=== PATIENT | male | born 1990 | race Two or more races ===

== ENCOUNTER 2025-01-04 12:45 | Emergency (ER) | payer SELFPAY ==
[2025-01-04 12:55] VITALS: BMI 24.0
--- NOTE | 2025-01-04 12:55 | EKG_ITS ---
[facility] Test Date: 2025-01-04 Pat Name: CASSIDY WAGNER Department: Room: - Gender: Male Dispatch Supervisor: : 1990 Requested By: Luis Manuel Alvarez Order Number: [id number] Reading MD: Luis Manuel Alvarez Measurements Intervals Dwarf Rate: 113 P: 43 CT: 162 QRS: 49 QRSD: 112 T: 55 QT: 372 QTc: 511 Interpretive Statements SINUS TACHYCARDIA MODERATE INTRAVENTRICULAR CONDUCTION DELAY [110+ ms QRS DURATION] NONSPECIFIC T-WAVE ABNORMALITY ABNORMAL RHYTHM ECG No previous ECG available for comparison /store/S0/[id number]/ecg/[id number].pdf
--- NOTE | 2025-01-04 12:57 | EDNOTE_ITS ---
ED Medical Clearance RME/HPI General Chief complaint: Medical Clearance Stated complaint: MEDICAL CLEARANCE Time Seen by Provider: 01/04/25 12:50 Arrival date/time: 01/04/25 12:45 34-year-old male patient with significant history of methamphetamine abuse, came in for evaluation regarding medical clearance. Tesfaye emanuel patient was incarcerated today and was noted to have elevated blood pressure above 180 systolic and a heart rate of 133. Currently patient is denying any chest pain. Patient complaining of left thumb nail injury, sustained 2 weeks ago while fixing his car. The nail Came off. Denies any difficulty moving the nail. No deformity noted tetanus vaccination is unknown. Patient admits of using meth last night. Related Information Previous Rx's ?Medication ?Instructions ?Recorded ibuprofen 600 mg tablet 1 tab PO Q8HR PRN pain #30 t abs 12/12/16 acetaminophen 500 mg tablet 1,000 mg (2 x 500 mg) PO Q ID PRN 02/26/18 fever #20 tabs albuterol sulfate 90 mcg/actuation 2 puff inhalation Q ID PRN 02/26/18 aerosol inhaler shortness of breath or wheez ing #18 grams azithromycin 250 mg tablet See Rx Instructions PO .COM PLEX #6 02/26/18 tabs guaifenesin 100 mg/5 mL oral liquid 100 mg (5 mL) PO Q 4H PRN cold 02/26/18 symptoms #118 mL Allergies Allergy/AdvReac Type Severity Reaction Status Date / Time No Known Allergies Allergy Verified 02/26/18 01:07 Review of Systems Review of Systems Narrative Review of Systems: Review of system reviewed and within normal limits except mentioned in HPI ED Exam Narrative Physical exam: VITAL SIGNS: Reviewed. GENERAL APPEARANCE: Alert and interactive, follows commands, no acute distress, HEAD AND FACE: Non-traumatic. ENT: PERRL, pink conjunctivitis, eyelid no trauma, Mucous membrane moist. NECK: Supple, nontender, no nuchal rigidity. CHEST: No tenderness, no crepitus, no paradoxical movement, no retractions. LUNGS: Clear, well ventilated, symmetric, no rales, no wheezing, no ronchi, no stridor, good breath sounds bilaterally. HEART: Tachycardic, no murmur, no gallops. ABDOMEN: Soft, positive bowel sounds, nondistended, no guarding, nontender, no rebound, no masses, RECTAL: Deferred. GENITAL: Deferred. NEUROLOGICAL: Gross motor function intact sensory function intact, Appropriate for age. MUSCULOSKELETAL: low back nontender, full range of motion. EXTREMITIES: Left thumb nail totally gone, dry, new nail is growing ,nontender, full range of motion. No deformity SKIN: Color pink, dry, no rash, no lacerations, no abrasions, no contusions. LYMPHATICS: Deferred. Course Quality Measures none Orders Category Date Time Status EKG (ED ONLY) *Do not use* NOW Care 01/04/25 12:56 Completed Insert IV NOW Care 01/04/25 13:02 Active EKG (ED Only) Stat Exams 01/04/25 12:55 Draft LORazepam [Ativan Inj] Med 01/04/25 14:57 Discontinued 1 mg IVP X1 ONE LORazepam [Ativan] Med 01/04/25 12:55 Discontinued 0.5 mg PO X1 ONE NIFEdipine [Procardia] Med 01/04/25 14:09 Discontinued 10 mg PO X1 ONE Ringers Lactated 1000 ml [Lactated Ringers] 1,000 ml Med 01/04/25 12:57 Discontinued IV 999 mls/hr TET,DIP/PERT AC (Adult)-Tdap [Boostrix Adult (Tdap) Med 01/04/25 12:59 Discontinued Vacc] 0.5 ml IMI .ONCE ONE cloNIDine HCL [Catapres] Med 01/04/25 12:55 Discontinued 0.1 mg PO X1 ONE Vital Signs Vital signs: Vital Signs Pulse Rate 121 H 01/04/25 13:08 Blood Pressure 172/121 H 01/04/25 13:08 Medical Clearance [facility] Narrative MDM Narrative:: 01/04/25 12:45 34-year-old male patient with significant history of methamphetamine abuse, came in for evaluation regarding medical clearance. Apparently patient was incarcerated today and was noted to have elevated blood pressure above 180 systolic and a heart rate of 133. Currently patient is denying any chest pain. Patient complaining of left thumb nail injury, sustained 2 weeks ago while fixing his car. The nail Came off. Denies any difficulty moving the nail. No deformity noted tetanus vaccination is unknown. Patient admits of using meth last night. Patient EKG showed sinus tachycardia, ventricular rate of 113 bpm, no ST segment elevation depression noted. Patient received IV fluids, Ativan, Procardia, and clonidine. Latest blood pressure was noted to be 160/104 heart rate of 113/min. Patient is asymptomatic. Patient is medically cleared for incarceration. Patient data External records reviewed:: None Clinical information provided by:: patient and law enforcement Social determinants that could affect healthcare access:: none Patient has the following chronic illnesses:: Methamphetamine abuse How is presenting disease/condition affected by chronic disease/condition?: exac erbated by Evaluation data The following diagnostics were reviewed and interpreted by me:: EKG tracing(s) Lab and/or radiology exams considered but not ordered:: None see results MDM Interpretation Summary: See results MDM Medications / Prescriptions Medications or Prescriptions considered but not ordered:: None Medication administrations:: Medication Administration History Discontinued Medications Clonidine (Clonidine Hcl 0.1 Mg Tablet) 0.1 mg PO X1 ONE Stop: 01/04/25 12:56 Last Admin: 01/04/25 13:08 Dose: 0.1 mg Documented By: JERZY Diphtheria/Tetanus/Acell Pertussis (Diphth,Pertuss(Acell),Tet Vac 0.5 Ml Syr- Adult) 0.5 ml IMi .ONCE ONE Stop: 01/04/25 13:00 Last Admin: 01/04/25 13:10 Dose: 0.5 ml Documented By: JERZY Lactated Ringer's (Lactated Ringers) 1,000 mls @ 999 mls/hr IV .Q1H1M ONE Stop: 01/04/25 13:57 Last Infusion: 01/04/25 14:58 Dose: Infused Documented By: Admin: 01/04/25 13:08 Dose: 999 mls/hr Documented By: JERZY Lorazepam (Lorazepam 0.5 Mg Tablet) 0.5 mg PO X1 ONE Stop: 01/04/25 12:56 Last Admin: 01/04/25 13:09 Dose: 0.5 mg Documented By: JERZY Lorazepam (Lorazepam 2 Mg/Ml Vial) 1 mg IVP X1 ONE Stop: 01/04/25 14:58 Last Admin: 01/04/25 15:02 Dose: 1 mg Documented By: JERZY Nifedipine (Nifedipine 10 Mg Capsule) 10 mg PO X1 ONE Stop: 01/04/25 14:10 Last Admin: 01/04/25 14:16 Dose: 10 mg Documented By: JYOTHI See [facility] Consultations Consultation(s) initiated? (list below): No Diagnosis Medical Clearance Differential Diagnosis: other (Medical clearance for incarceration, methamphetamine abuse, tachycardia hypertension) Most likely diagnosis given after review of the tests above:: Medical clearance for incarceration, methamphetamine abuse tachycardia hypertension Admission Indicated Admission indicated?: not indicated Explain why admission is indicated or not indicated:: Cleared to go to assisted Admission Request Was there a request for admission?: No Disposition Plan Disposition Plan: Discharge Discharge Attestation Discharge Attestation: Patient condition: Stable Discharge Plan Plan Patient Disposition: Fdc/Court/Law Discharge Disposition comment: stable Prescriptions/Referrals Prescriptions/Med Rec: No Action ibuprofen 600 MG tablet 1 tab PO Q8HR PRN (Reason: pain) Qty: 30 0RF azithromycin 250 mg tablet See Rx Instructions .ROUTE .COMPLEX Qty: 6 0RF Rx Instructions: take 500 mg once on the first day and 1 tablet for the remaining 4 days. acetaminophen 500 mg tablet 1,000 mg PO QID PRN (Reason: fever) Qty: 20 0RF guaifenesin 100 mg/5 mL liquid 100 mg PO Q4H PRN (Reason: cold symptoms) Qty: 118 0RF albuterol sulfate 90 mcg/actuation HFA aerosol inhaler 2 puff INH QID PRN (Reason: shortness of breath or wheezing) Qty: 18 0RF Referrals: No Primary/Family,Physician [Primary Care Provider] - In 1 week Problem List Clinical Impression: Medical clearance for incarceration, Tachycardia, Methamphetamine abuse Patient/Caregiver Discharge Instructions Discharge Activity: activity as tolerated Education Materials: ED Drug Abuse Additional Instructions: Thank you for the opportunity for serving you today. You are stable for discharged . You are advised to: Stop abusing methamphetamine. Follow-up with your PCP once you get out of assisted also regarding your chronic management of your hypertension. Print Language: Syriac Stand Alone Forms: Scarlet Award Info., Patient Portal Info Letter PA/INVENTORY AUDIT CLERK Supervising Physician MARION/LCAHO Supervising Physician: MD Abner
[2025-01-04 13:08] VITALS: BP 172/121; PULSE 121
[2025-01-04] MEDS: RINGERS LACTATED 1000 ML 1,000 ML 999 ML IV (13:08)
[2025-01-04] MEDS: DIPHTH,PERTUSS(ACELL),TET VAC 0.5 ML SYR- ADULT IMi (13:10)
[2025-01-04 14:01] VITALS: BP 171/112; PULSE 119; RESP 18; TEMP 36.9; O2SAT 96
[2025-01-04 14:16] VITALS: BP 200/135; PULSE 123
[2025-01-04] MEDS: LORazepam 2 MG/ML VIAL 1 MG IVP (15:02)
[2025-01-04 15:16] VITALS: BP 155/103; PULSE 115; RESP 18; TEMP 36.7; O2SAT 95
[2025-01-04 15:56] VITALS: BP 160/104; PULSE 116
[2025-01-04 16:22] VITALS: BP 154/101; PULSE 114; RESP 16; O2SAT 95
== END 2025-01-04 16:15 ==
PROVIDERS: Emergency Provider Family Medicine
DX: Z02.89 Encounter for other administrative examinations (principal); F15.10 Other stimulant abuse, uncomplicated; R00.0 Tachycardia, unspecified; Z23 Encounter for immunization
CPT/HCPCS: 90471; 90715; 93005; 96361; 96374; 99283; J2060; J7120; A9270